=== PATIENT | female | born 1975 | race Asian ===

== ENCOUNTER 2022-12-24 08:09 | Emergency (ER) | payer BC, OTHER ==
[2022-12-24 08:16] VITALS: BP 102/69; PULSE 79; RESP 18; TEMP 97.7; BMI 32.5
[2022-12-24] MEDS ORDERED: DOXYCYCLINE HYCLATE 100 MG CAPSULE PO ONE ×2 (09:21→09:25)
[2022-12-24] MEDS ORDERED: CEPHALEXIN MONOHYDRATE 500 MG CAPSULE (UD) PO ONE (09:21)
[2022-12-24] MEDS ORDERED: CEPHALEXIN MONOHYDRATE 500 MG CAPSULE (UD) ONE (09:25)
== END 2022-12-24 09:39 | disposition home or self-care (01) ==
LOC: JER 08:09
DX: M79.662 Pain in left lower leg (principal); R22.42 Localized swelling, mass and lump, left lower limb; L03.116 Cellulitis of left lower limb
CPT/HCPCS: 93971-LT; 99284-25

== ENCOUNTER 2022-12-29 15:26 | Emergency (ER) | payer BC ==
[2022-12-29 15:35] VITALS: BP 121/62; PULSE 103; RESP 19; TEMP 98.5; BMI 32.0
[2022-12-29 16:36] LABS: BASO % 0.2 % (0-2.0); HEMOGLOBIN 13.1 GM/dL (10.7-15.3); LYMPH % 11.5 % (8-40); MCH 29.7 pg (25.7-33.7); MCHC 32.8 g/dl (32.0-36.0); MEAN CELL VOLUME 90.4 fl (80-96); MEAN PLT VOLUME 7.6 fl (7.5-11.1); MONO % 9.6 % (3.8-10.2); NEUT % 67.7 % (42.8-82.8); PLATELET COUNT 344 10^3/uL (134-434); RBC 4.42 M/mm3 (3.60-5.2); RDW 13.3 % (11.6-15.6); WHITE BLOOD COUNT 4.6 K/mm3 (4.0-10.0)
[2022-12-29 17:10] LABS: POTASSIUM 4.7 mmol/L (3.5-5.1)
[2022-12-29 17:13] LABS: BLOOD UREA NITROGEN 12.1 mg/dL (7-18); CALCIUM 8.9 mg/dL (8.5-10.1)
== END 2022-12-29 18:28 | disposition home or self-care (01) ==
LOC: JERFT 15:26
DX: R50.9 Fever, unspecified (principal); R07.0 Pain in throat; M79.10 Myalgia, unspecified site
CPT/HCPCS: 36415; 80048; 85025; 87651; 99283-25